=== PATIENT | male | born 1995 | race Hispanic/Latino ===

== ENCOUNTER 2019-12-21 19:31 | Emergency (ER) | payer OTHER, SELFPAY ==
--- NOTE | ~2019-12-21 | XR_ITS ---
EXAMINATION: XR forearm LT 2V EXAM DATE: 12/21/2019 19:47 INDICATION: Puncture wound. Left arm pain. TECHNIQUE: Left forearm frontal and lateral projections obtained and reviewed. There is no prior souleymane dy for comparison. FINDINGS: There are no acute fractures or dislocations identified. There is no subcutaneous gas. Th e soft tissue is unremarkable. There are no radiopaque foreign bodies. IMPRESSION: No radiopaque foreign bodies identified. Reviewed, dictated and finalized at location A.
[2019-12-21 19:37] VITALS: BP 154/78; PULSE 85; RESP 16; TEMP 36.7; O2SAT 100
--- NOTE | 2019-12-21 19:43 | ED.GENADULT ---
HPI - General Adult General Chief complaint: Wound/Laceration Stated complaint: laceration forearm Time Seen by Provider: 12/21/19 19:43 Source: patient Mode of arrival: ambulatory Limitations: no limitations History of Present Illness HPI narrative: 24-year-old male patient presents to the [facility] with complaints of a laceration to the left forearm. Patient states it happened approximately 130 this afternoon. 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 Patient states it was tempered glass. Patient states he did not think it was that bad and cleaned it away with some alcohol however throughout the day he noticed that it started bruising around the site when to come and get it checked out. Patient unknown of what his last tetanus shot was. Denies any history of diabetes. Denies any decreased range of motion to the arm or forearm. Denies any numbness or tingling to the fingertips. Related Data Allergies Allergy/AdvReac Type Severity Reaction Status Date / Time No Known Allergies Allergy Verified 12/21/19 19:36 Review of Systems Review of Systems: Narrative: CONSTITUTIONAL: Denies fever, chills, or sweats. EYES: Denies visual changes, redness, or discharge. ENT: Denies rhinorrhea, congestion, sore throat, or otalgia. CARDIOVASCULAR: Denies chest pain, palpitations, or edema. RESPIRATORY: Denies cough or dyspnea. GASTROINTESTINAL: Denies abdominal pain, nausea, vomiting, or diarrhea. GENITOURINARY: Denies dysuria or hematuria. SKIN: Denies rash or itching. Positive laceration left forearm MUSCULOSKELETAL: Denies back pain, joint pain, or myalgia. NEUROLOGIC: Denies headache, numbness, or weakness. PSYCHIATRIC: Denies anxiety or depression. PMFSH Comments At the time of my signature I agree with nursing past medical history, surgical, social, and family history. There is no relevant family history pertinent to the presenting complaint. Exam Narrative: Exam Narrative: GENERAL: Well-appearing, well-nourished, and in no acute distress. HEAD: Normocephalic, atraumatic. EYES: PERRLA and EOMI. ENT: Nares clear, no rhinorrhea or epistaxis. Mucous membranes moist. NECK: Supple. No lymphadenopathy CHEST: Clear to auscultation. No respiratory distress. HEART: Regular rate and rhythm. No murmur heard. Normal peripheral pulses. ABDOMEN: Soft, nontender, nondistended, normal active bowel sounds. EXTREMITIES: Normal range of motion. No edema. SKIN: Warm, dry, no rash. Patient has 0.25 cm very superficial wound to the left forearm on the anterior side. Does have some bruising noted but no erythema, no warmth, no discharge from the site. NEURO: No focal deficits. Alert and oriented x3. Course Reevaluation(s) Reevaluation #1: Reevaluated patient and notified him that there is no foreign body noted on x-ray. Discussed with him to keep the area clean with regular soap and water, apply the antibiotic ointment, keep it covered. Discussed with patient he can ice the area to help decrease the bruising. Discussed with patient if he has signs and symptoms of infection including erythema, discharge, body aches, chills, swelling or any other concerning symptoms he would need to be reevaluated for possible oral antibiotics. Patient verbalized understanding denies any other questions or concerns at this time. Date: 12/21/19 Time: 20:03 Vital Signs Vital signs: Vital Signs Temperature 36.7 C 12/21/19 19:37 Pulse Rate 85 12/21/19 19:37 Respiratory Rate 16 12/21/19 19:37 Blood Pressure 154/78 H 12/21/19 19:37 Pulse Oximetry 100 12/21/19 19:37 Temperature 36.7 C 12/21/19 19:37 Pulse Rate 85 12/21/19 19:37 Respiratory Rate 16 12/21/19 19:37 Blood Pressure 154/78 H 12/21/19 19:37 Pulse Oximetry 100 12/21/19 19:37 Vital signs reviewed. The patient has been informed that they may have pre-hypertension or Hypertension based on a BP r
[2019-12-21] MEDS: TETANUS,DIPHTHERIA,AC PERTUSSIS ADULT (0.5 ML) BOOSTRIX IM (19:50)
== END 2019-12-21 20:10 | disposition home or self-care (01) ==
PROVIDERS: Emergency Provider Nurse Practitioner Family; PCP Registered Nurse
DX: S51.832A Puncture wound without foreign body of left forearm, initial encounter (principal); Z23 Encounter for immunization; W25.XXXA Contact with sharp glass, initial encounter; Y99.0 Civilian activity done for income or pay; Y92.63 Factory as the place of occurrence of the external cause
CPT/HCPCS: 73090; 90471; 90715; 99203; G0463

== ENCOUNTER 2020-09-13 08:20 | Emergency (ER) | payer SELFPAY ==
[2020-09-13 08:32] VITALS: BP 147/90; PULSE 85; RESP 16; TEMP 36.5; O2SAT 100
[2020-09-13 08:37] VITALS: BP 147/90; PULSE 85; RESP 16; TEMP 36.5; O2SAT 100
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
== END 2020-09-13 09:15 | disposition home or self-care (01) ==
PROVIDERS: Emergency Provider Registered Nurse
DX: M54.6 Pain in thoracic spine (principal)
CPT/HCPCS: 99213; G0463

== ENCOUNTER 2022-02-25 10:49 | Emergency (ER) | payer OTHER, SELFPAY ==
[2022-02-25 11:01] VITALS: BP 156/89; PULSE 75; RESP 16; TEMP 36.6; O2SAT 99
--- NOTE | 2022-02-25 11:17 | ED.BACK ---
HPI - Back Pain/Injury General Chief Complaint: Back Pain/Injury Stated Complaint: lower back pain Time Seen by Provider: 02/25/22 11:10 Source: patient Mode of arrival: ambulatory Limitations: no limitations History of Present Illness HPI Narrative: 26-year-old male presented for complaints of left lower back pain radiating to the toes since about 929 today. He states he was in the shower when he bent over and felt pain states he thinks he heard a pop, and felt dizzy. He did not lose consciousness. He currently denies numbness, tingling, or weakness of the lower extremities, saddle paresthesia or loss of bowel or bladder. Denies change in gait or dizziness. He has not taken anything for pain. He rates the pain 10 out of 10, worse when walking or moving, better at rest. Pain is constant and sharp. Related Data Allergies Allergy/AdvReac Type Severity Reaction Status Date / Time No Known Allergies Allergy Verified 02/25/22 11:11 Review of Systems Review of Systems: CONSTITUTIONAL: Denies body aches, fever, chills EYES: Denies visual changes CARDIOVASCULAR: Denies chest pain, palpitations, or edema. RESPIRATORY: Denies cough or dyspnea. GASTROINTESTINAL: Denies abdominal pain, nausea, vomiting, or diarrhea. SKIN: Denies rash, itching, or wounds. MUSCULOSKELETAL: reports back pain NEUROLOGIC: Denies headache, numbness, tingling, or weakness. All systems reviewed & are unremarkable except as noted in HPI and below PMFSH Past Medical History Medical History Asthma states as child Surgical History Surgical History H/O inguinal hernia repair as Hx of appendectomy Family History Family History Other Heart disease Hypertension Social History Social History Smoking status: Never smoker Alcohol intake: current Alcohol use details: social Substance use: former Substance use type: marijuana Additional occupation/education comments: [employer] Gender identity (if verbalized by the patient): Male Comments At time of signature, I have reviewed and agree with nursing past medical, surgical, social and family history unless otherwise noted. Please see nursing chart for further information. There is no relevant family history pertinent to the presenting complaint Exam Narrative: GENERAL: Well-appearing HEAD: Normocephalic, atraumatic. EYES: conjunctivae clear NECK: Supple. full ROM CHEST: Speaks in full sentences. No respiratory distress. HEART: Regular rate and rhythm. Normal and equal peripheral pulses. MUSC: No Vertebral point tenderness. BLEs with normal strength and sensation, normal range of motion. Subjective low back pain with movement and palpation over left paraspinal area to upper hip. No open wounds or obvious deformity; pulse palpable and equal bilaterally, skin warm, dry, pink. Capillary refill less than 3 seconds. Gait steady. SKIN: Warm, dry, no rash. NEURO: Alert and oriented x3. Course Course Emergency Course: Patient is aware of diagnosis, understands and agrees to treatment plan. Anticipatory guidance given. Patient agrees to follow-up as directed and is aware of reasons to seek care at the emergency department. Portions of this record may have been created with voice recognition software Level of Care: Express Care Visit Vital Signs Vital signs: Vital Signs Temperature 97.8 F 02/25/22 11:01 Pulse Rate 75 02/25/22 11:01 Respiratory Rate 16 02/25/22 11:01 Blood Pressure 156/89 H 02/25/22 11:01 Pulse Oximetry 99 02/25/22 11:01 Oxygen Delivery Room Air 02/25/22 11:01 Temperature 97.8 F 02/25/22 11:01 Pulse Rate 75 02/25/22 11:01 Respiratory Rate 16 02/25/22 11:01 Blood Pressure 156/89 H 02/25/22 11:
== END 2022-02-25 11:25 | disposition home or self-care (01) ==
PROVIDERS: Emergency Provider Nurse Practitioner Family; PCP Registered Nurse
DX: S39.012A Strain of muscle, fascia and tendon of lower back, initial encounter (principal); X58.XXXA Exposure to other specified factors, initial encounter
CPT/HCPCS: 99213; G0463